=== PATIENT | female | born 1950 | race Caucasian/White ===

== ENCOUNTER → 2017-04-26 | Outpatient (CLI) | payer OTHER ==
[~2017-04-26] VITALS: Ht 162.6 cm; Wt 76.2 kg
[~2017-04-26] MED LIST: ALLERGY RELIE15.8 ML BOTH NARES; GEMFIBROZIL600 MG PO; LOPID600 MG PO; NORCO 5/3251 TABLET PO; PROAIR HFA8.5 GM IH
== END | disposition home or self-care (01) ==
LOC: AMB 11:28
PROC: 0DJD8ZZ Inspection of Lower Intestinal Tract, Via Natural or Artificial Opening Endoscopic (ICD-10-PCS; principal; 2017-04-26)
DX: Z12.11 Encounter for screening for malignant neoplasm of colon (principal); Z86.010 Personal history of colon polyps; K64.8 Other hemorrhoids; J45.909 Unspecified asthma, uncomplicated; E78.5 Hyperlipidemia, unspecified
CPT/HCPCS: J2250; J3010